=== PATIENT | male | born 1960 | race Caucasian/White ===

== ENCOUNTER 2018-10-23 09:30 | Emergency (ER) | payer OTHER ==
--- NOTE | 2018-10-23 09:42 | ED ---
Dizziness - HPI Summary HPI Summary: This patient is a 57 year old male presenting to [facility] with a chief complaint of light-headedness since this morning. When he woke up this morning he helped his daughter move a piece of furniture by the pool and then he sat down to relax. Then he started experiencing light-headedness. The patient reports nausea. Pt denies any fever, chills, erythema of eyes, sore throat, CP, SOB, cough, abdominal pain, vomiting , dysuria, hematuria, myalgia, edema, or rash. Zolpidem TAB* [Ambien*] 5 mg PO BEDTIME PRN 12/06/15 [History Confirmed 02/21/17 ] Aspirin EC TAB* [Ecotrin EC Low Dose 81 MG*] 81 mg PO DAILY tab.ec 12/09/15 [ Rx Confirmed 02/21/17] Isosorbide Mononitrate ER TAB* [Imdur ER TAB*] 30 mg PO DAILY #30 tab.er [Rx Confirmed 02/21/17] Metoprolol Tartrate TAB* [Lopressor TAB*] 25 mg PO BID #60 tab 12/09/15 [Rx Confirmed 02/21/17] Ticagrelor* [Brilinta 90 MG*] 90 mg PO BID #60 tab 12/09/15 [Rx Confirmed ] Multiple Vitamins W/ Minerals [Multivitamin Men] 1 tab PO DAILY 02/20/17 [ History Confirmed 02/21/17] Rosuvastatin Calcium 5 mg PO DAILY 02/20/17 [History Confirmed 02/21/17] - History Of Current Complaint Chief Complaint: EDHypertension Stated Complaint: LIGHT HEADED PER PT Time Seen by Provider: 10/23/18 09:36 Hx Obtained From: Patient Character: Lightheaded - Allergies/Home Medications Allergies/Adverse Reactions: Allergies Allergy/AdvReac Type Severity Reaction Status Date / Time No Known Allergies Allergy Verified 10/23/18 09:36 PMH/Surg Hx/FS Hx/Imm Hx Endocrine/Hematology History: Denies: Hx Diabetes Cardiovascular History: Reports: Hx Angina, Hx Coronary Artery Disease, Hx Hypercholesterolemia, Hx Hypertension, Hx Myocardial Infarction Denies: Hx Pacemaker/ICD, Hx Valvular Heart Disease Respiratory History: Denies: Hx Asthma, Hx Chronic Obstructive Pulmonary Disease (COPD) Sensory History: Denies: Hx Hearing Aid Psychiatric History: Denies: Hx Panic Disorder - Surgical History Surgery Procedure, Year, and Place: HERN[facility] Infectious Disease History: No Infectious Disease History: Denies: Traveled Outside the [place] in Last 30 Days - Family History Known Family History: Positive: Hypertension - Social History Alcohol Use: Weekly Alcohol Amount: 5 beers twice/wk Substance Use Type: Reports: None Smoking Status (MU): Never Smoked Tobacco Review of Systems Negative: Fever, Chills Negative: Erythema Negative: Sore Throat Negative: Chest Pain Negative: Shortness Of Breath, Cough Positive: Nausea. Negative: Abdominal Pain, Vomiting Negative: dysuria, hematuria Negative: Myalgia, Edema Negative: Rash Neurological: Other - Light-headed All Other Systems Reviewed And Are Negative: Yes Physical Exam - Summary Physical Exam Summary: Constitutional: Well-developed, Well-nourished, Alert. (-) Distressed Skin: Warm, Dry HENT: Normocephalic; Atraumatic Eyes: Conjunctiva normal Neck: Musculoskeletal ROM normal neck. (-) JVD, (-) Stridor, (-) Tracheal deviation Cardio: Rhythm regular, rate normal, Heart sounds normal; Intact distal pulses; The pedal pulses are 2+ and symmetric. Radial pulses are 2+ and symmetric. (-) Murmur Pulmonary/Chest wall: Effort normal. (-) Respiratory distress, (-) Wheezes, (-) Rales Abd: Soft, (-) tenderness, (-) Distension, (-) Guarding, (-) Rebound Musculoskeletal: (-) Edema Lymph: (-) Cervical adenopathy Neuro: Alert, Oriented x3 Psych: Mood and affect Normal GCS: 15 Triage Information Reviewed: Yes Vital Signs On Initial Exam: Initial Vitals Temp Pulse Resp BP Pulse Ox 98.0 F 58 16 183/105 98 10/23/18 09:33 10/23/18 09:33 10/23/18 09:33 10/23/18 09:33 10/23/18 09:33 Vital Signs Reviewed: Yes Diagnostics - Vital Signs Vital Signs Temp Pulse Resp BP Pulse Ox 10/23/18 09:33 98.0 F 58 16 183/105 98 - Laboratory Result Diagrams: 10/23/18 09:46 10/23/18 09:46 Lab Statement: Any lab studies that have been ordered have been reviewed, and results considered in the medical decision making process. - CT Brain CT Interpretation Completed By: Radiologist Summary of CT Findings: There is no evidence of intracranial mass or hemorrhage. ED Provider has reviewed this report. - EKG 0954 Cardiac Rate: Bradycardia EKG Rhythm: Sinus Bradycardia - [address] Segment: Normal Ectopy: None Summary of EKG Findings: No STEMI Re-Evaluation - Re-Evaluation First Eval Re-Evaluation Time: 10:17 Change: Worse Comment: Patient is now actively vomiting. During orthostatic vital signs, the patients BP increased to 160/95. Due to this, a Brain CT was ordered. Second Eval Re-Evaluation Time: 11:09 Change: Improved Comment: All symptoms resolved. Patient feels better. Dizzy Course/Dx - Course Course Of Treatment: This patient is a 57 year old male presenting to [facility] with a chief complaint of light-headedness since this morning. At reevaluation, patient is now actively vomiting. During orthostatic vital signs, the patients BP increased to 160/95. Due to this, a Brain CT was ordered. The Brain CT was unremarkable. Upon second reevaluation all symptoms resolved and the patient feels better. Walked patient around and patient had normal gait. Hypertension has resolved. Romberg test is unremarkable. Finger to nose test unremarkable. Spoke with patient's PCP Dr. Ivan. Patient will undergo ambulatory monitoring with Dr. Ivan. Dr. Ivan also recommends he take 2.5 mg Amlodapine at night. The patient will be discharged with a plan to follow up with Dr. Ivan in 2-3 days. This plan was discussed with the patient and he was agreeable with this plan. - Diagnoses Provider Diagnoses: Hypertensive urgency, Dizziness - Provider Notifications Discussed Care Of Patient With: Celestine Ivan - Patient PCP Time Discussed With Above Provider: 14:00 Instructed by Provider To: Have Pt Call For Appt. Discharge - Sign-Out/Discharge Documenting (check all that apply): Patient Departure - Discharge Patient Received Moderate/Deep Sedation with Procedure: No - Discharge Plan Condition: Stable Disposition: HOME Prescriptions: amLODIPine TAB* [Norvasc 5 mg TAB*] 2.5 mg PO QPM #14 tab Patient Education Materials: Hypertensive Crisis (ED), Dizziness (ED) Referrals: Celestine Ivan MD [Primary Care Provider] - 2 Days Additional Instructions: Follow up with Dr. Ivan in 2-3 days. Return to ED with any new or worsening symptoms. - Attestation Statements Document Initiated by Scribe: Yes Documenting Scribe: Giovany Kurtz Provider For Whom Scribe is Documenting (Include Credential): Charlie Doe MD Scribe Attestation: Giovany Mendoza, scribed for Charlie Doe MD on 10/23/18 at 1408. Status of Scribe Document: Ready
[2018-10-23 09:57] LABS: ABS Basophils 0.1 10^3/ul (0-0.2); ABS Eosinophils 0.1 10^3/ul (0-0.6); ABS Lymphocytes 3.3 10^3/ul (1.0-4.8); ABS Monocytes 0.6 10^3/ul (0-0.8); ABS Neutrophils 2.5 10^3/ul (1.5-7.7); Eosinophil % 2.1 %; Hematocrit 50 % (42-52); Hemoglobin 16.7 g/dL (14.0-18.0); Lymphocyte % 50.7 %; Mean Corpuscular HGB Conc 33 g/dL (31-36); Mean Corpuscular Hemoglobin 28 pg (27-31); Mean Corpuscular Volume 85 fL (80-94); Mean Platelet Volume 7.6 fL (7.4-10.4); Nucleated Red Blood Cells % 0.3; Platelet Count 223 10^3/uL (150-450); Red Blood Count 5.88 10^6 /uL (4.18-5.48); Red Cell Distribution Width 14 % (10.5-15); White Blood Count 6.6 10^3/uL (3.5-10.8)
[2018-10-23] MEDS: hydrALAZINE IV* 20 MG/ML VIAL IV SLOW PU ONE ×2 (10:06→10:16)
[2018-10-23] MEDS ORDERED: Ondansetron INJ* 2 MG/ML VIAL IV ONE (10:16)
[2018-10-23 10:20] LABS: Albumin/Globulin Ratio 1.4 (1-3); BUN/Creatinine Ratio 18.6 (8-20); Calcium 9.6 mg/dL (8.6-10.3); EGFR African American 69.2 (>60); EGFR Non-African American 57.2 (>60); Globulin 2.9 g/dL (2-4); Potassium 4.1 mmol/L (3.5-5.0); Total Bilirubin 0.9 mg/dL (0.2-1.0); Total Protein 6.9 g/dL (6.4-8.9)
[2018-10-23 14:10] VITALS: BP 133/96
== END 2018-10-23 14:09 | disposition home or self-care (01) ==
LOC: ED 09:30
DX: I16.0 Hypertensive urgency (principal); R42 Dizziness and giddiness; I25.10 Atherosclerotic heart disease of native coronary artery without angina pectoris; I25.2 Old myocardial infarction; E78.00 Pure hypercholesterolemia, unspecified; Z79.82 Long term (current) use of aspirin; Z79.899 Other long term (current) drug therapy
CPT/HCPCS: 36415; 70450; 80053; 83605; 84484; 85025; 93005; 96374; 99283; J0360; J2405

== ENCOUNTER 2021-04-01 03:00 | Inpatient (IN) ==
[2021-04-01 04:18] LABS: ABS Eosinophils 0.1 10^3/ul (0-0.6); ABS Lymphocytes 1.4 10^3/ul (1.0-4.8); ABS Monocytes 0.9 10^3/ul (0-0.8); ABS Neutrophils 5.7 10^3/ul (1.5-7.7); Eosinophil % 1.5 %; Hematocrit 48 % (42-52); Hemoglobin 15.9 g/dL (14.0-18.0); Lymphocyte % 17.5 %; Mean Corpuscular HGB Conc 33 g/dL (31-36); Mean Corpuscular Hemoglobin 29 pg (27-31); Mean Corpuscular Volume 87 fL (80-94); Mean Platelet Volume 7.7 fL (7.4-10.4); Platelet Count 194 10^3/uL (150-450); Red Blood Count 5.51 10^6 /uL (4.18-5.48); Red Cell Distribution Width 15 % (10-15); White Blood Count 8.1 10^3/uL (3.5-10.8)
[2021-04-01 04:24] LABS: INR 1.13 (0.86-1.15)
[2021-04-01 04:34] LABS: Albumin 3.7 g/dL (3.2-5.2); Calcium 9.5 mg/dL (8.6-10.3); Globulin 3.4 g/dL (2-4); Potassium 4.6 mmol/L (3.5-5.0); Total Protein 7.1 g/dL (6.4-8.9)
[2021-04-01 04:35] LABS: Albumin/Globulin Ratio 1.1 (1-3); Total Bilirubin 1.1 mg/dL (0.2-1.0)
[2021-04-01 04:36] LABS: Troponin I 0.02 ng/mL (<0.03)
[2021-04-01] MEDS ORDERED: Iohexol 350 (CONTRAST) 500 ML MDV IV ONE (09:27)
[2021-04-01] MEDS ORDERED: Enoxaparin 100 MG/ML SYR SUBCUT ONE (10:02)
[2021-04-01] MEDS ORDERED: Morphine 4 MG/ML VIAL (1 ml) IV ONE (10:10)
[2021-04-01] MEDS ORDERED: Ondansetron 4 mg VIAL 2 MG/ML 2 ml VIAL IV PRN (11:00)
[2021-04-01 11:47] LABS: Rapid COVID-19 Molecular Undetected (Undetected)
[2021-04-01 12:03] LABS: PSA Screening Total 1.186 ng/mL (0-4.000)
[2021-04-01] MEDS: Enoxaparin 100 MG/ML SYR SUBCUT SCH (22:23)
[2021-04-02 07:16] LABS: ABS Eosinophils 0.1 10^3/ul (0-0.6); ABS Lymphocytes 1.3 10^3/ul (1.0-4.8); ABS Monocytes 0.8 10^3/ul (0-0.8); ABS Neutrophils 6.6 10^3/ul (1.5-7.7); Eosinophil % 1.1 %; Hematocrit 47 % (42-52); Hemoglobin 15.9 g/dL (14.0-18.0); Lymphocyte % 14.5 %; Mean Corpuscular HGB Conc 34 g/dL (31-36); Mean Corpuscular Hemoglobin 29 pg (27-31); Mean Corpuscular Volume 87 fL (80-94); Mean Platelet Volume 7.1 fL (7.4-10.4); Nucleated Red Blood Cells % 0.1; Platelet Count 201 10^3/uL (150-450); Red Blood Count 5.42 10^6 /uL (4.18-5.48); Red Cell Distribution Width 14 % (10-15); White Blood Count 8.8 10^3/uL (3.5-10.8)
[2021-04-02 07:30] LABS: Calcium 9.4 mg/dL (8.6-10.3); Potassium 4.6 mmol/L (3.5-5.0)
[2021-04-02] MEDS: Enoxaparin 100 MG/ML SYR SUBCUT SCH ×2 (12:00→22:34)
[2021-04-02 16:12] LABS: Urine Appearance Clear; Urine Bilirubin Negative (Negative); Urine Blood 3+ (Negative); Urine Color Yellow; Urine Glucose Negative (Negative); Urine Ketones Trace (Negative); Urine Nitrite Negative (Negative); Urine Protein 2+(100 mg/dL) (Negative); Urine Urobilinogen Negative (Negative)
[2021-04-02 16:19] LABS: Urine Bacteria Absent (Absent); Urine Red Blood Cell 3+(>10/hpf) (Absent); Urine White Blood Cell Trace(0-5/hpf) (Absent)
[2021-04-03 08:38] LABS: ABS Eosinophils 0.2 10^3/ul (0-0.6); ABS Monocytes 0.7 10^3/ul (0-0.8); ABS Neutrophils 4.1 10^3/ul (1.5-7.7); Eosinophil % 2.7 %; Hematocrit 48 % (42-52); Hemoglobin 16.3 g/dL (14.0-18.0); Lymphocyte % 17.2 %; Mean Corpuscular HGB Conc 34 g/dL (31-36); Mean Corpuscular Hemoglobin 29 pg (27-31); Mean Corpuscular Volume 86 fL (80-94); Mean Platelet Volume 7.1 fL (7.4-10.4); Nucleated Red Blood Cells % 0.1; Platelet Count 220 10^3/uL (150-450); Red Blood Count 5.58 10^6 /uL (4.18-5.48); Red Cell Distribution Width 14 % (10-15)
[2021-04-03 08:55] LABS: Calcium 9.6 mg/dL (8.6-10.3); Potassium 4.5 mmol/L (3.5-5.0)
[2021-04-03] MEDS: Enoxaparin 100 MG/ML SYR SUBCUT SCH (11:06)
[2021-04-03 15:29] LABS: Protein C Activity 113 % (70 - 150)
[2021-04-03 16:08] VITALS: BP 167/104
[2021-04-05 19:56] LABS: Phospholipid Ab IgG < 9.4 GPL; Phospholipid Ab IgM, S < 9.4 MPL
[2021-04-07 10:07] LABS: Factor V Leiden Mutation Negative (Negative)
== END 2021-04-03 18:30 | disposition home or self-care (01) | DRG 134 ==
LOC: ED 03:00 → SUATTDRO 11:00 → EDHOLD 11:00 → MED 04-02 03:19
PROVIDERS: ADMIT Student in an Organized Health Care Education/Training Program; ATTEND Hospitalist

== ENCOUNTER 2022-04-25 06:07 | Inpatient (IN) ==
[2022-04-25 06:39] LABS: ABS Eosinophils 0.2 10^3/ul (0-0.6); ABS Lymphocytes 1.6 10^3/ul (1.0-4.8); ABS Monocytes 0.6 10^3/ul (0-0.8); ABS Neutrophils 2.6 10^3/ul (1.5-7.7); Eosinophil % 3.2 %; Hematocrit 51 % (42-52); Lymphocyte % 32.5 %; Mean Corpuscular HGB Conc 33 g/dL (31-36); Mean Corpuscular Hemoglobin 29 pg (27-31); Mean Corpuscular Volume 86 fL (80-94); Mean Platelet Volume 7.4 fL (7.4-10.4); Platelet Count 201 10^3/uL (150-450); Red Blood Count 5.95 10^6 /uL (4.18-5.48); Red Cell Distribution Width 14 % (10-15)
[2022-04-25 06:41] LABS: INR 0.93 (0.89-1.11)
[2022-04-25 07:16] LABS: Albumin/Globulin Ratio 1.5 (1-3); Calcium 9.5 mg/dL (8.6-10.3); Globulin 2.6 g/dL (2-4); Potassium 4.4 mmol/L (3.5-5.0); Total Bilirubin 0.7 mg/dL (0.2-1.0); Total Protein 6.6 g/dL (6.4-8.9); eGFR CKD-EPI 58.3 (>60)
[2022-04-25 08:13] LABS: High Sensitivity Troponin 1 Hr 10 pg/mL (<20)
[2022-04-25] MEDS ORDERED: NS 0.9% 1000 ml BAG 1,000 ML IV SCH (13:30)
[2022-04-25] MEDS ORDERED: Heparin 1,000 UNIT/ML 10 ml (10,000 UNITS) CATHLAB/DIALYSIS ONE ×2 (13:52→14:52)
[2022-04-25] MEDS ORDERED: Midazolam 5 mg/5 ml VIAL 1 mg/ml 5 ml VIAL (5 mg) ONE (13:52)
[2022-04-25] MEDS ORDERED: fentaNYL 100 mcg/2 ml 50 MCG/ML VIAL ONE ×2 (13:52→15:20)
[2022-04-25] MEDS ORDERED: Iohexol 350 (CONTRAST) 100 ML PAK IV ONE ×2 (13:53→15:00)
[2022-04-25] MEDS ORDERED: Lidocaine 1% MPF 5 ML VIAL ONE (13:53)
[2022-04-25] MEDS ORDERED: nitroGLYCERIN DRIP 25,000 MCG/250 ML BTL ONE (13:53)
[2022-04-25] MEDS ORDERED: niCARdipine 0.1MG/ML IVPREMIX 20 MG/200 ML BAG IV ONE (13:53)
[2022-04-25] MEDS ORDERED: Heparin 2 UNITS/ML 1000 mls 2,000 ML IV ONE (13:53)
[2022-04-25] MEDS ORDERED: Prasugrel 10 mg TAB (NF) ONE (14:45)
[2022-04-25] MEDS ORDERED: Ondansetron 4 mg VIAL 2 MG/ML 2 ml VIAL IV PRN (15:27)
[2022-04-26 04:43] LABS: ABS Basophils 0.1 10^3/ul (0-0.2); ABS Eosinophils 0.2 10^3/ul (0-0.6); ABS Lymphocytes 1.5 10^3/ul (1.0-4.8); ABS Monocytes 0.7 10^3/ul (0-0.8); ABS Neutrophils 4.1 10^3/ul (1.5-7.7); Eosinophil % 2.6 %; Hematocrit 51 % (42-52); Hemoglobin 16.9 g/dL (14.0-18.0); Lymphocyte % 23.8 %; Mean Corpuscular HGB Conc 33 g/dL (31-36); Mean Corpuscular Hemoglobin 29 pg (27-31); Mean Corpuscular Volume 86 fL (80-94); Mean Platelet Volume 7.2 fL (7.4-10.4); Nucleated Red Blood Cells % 0.1; Platelet Count 188 10^3/uL (150-450); Red Blood Count 5.95 10^6 /uL (4.18-5.48); Red Cell Distribution Width 14 % (10-15); White Blood Count 6.5 10^3/uL (3.5-10.8)
[2022-04-26 05:32] LABS: Albumin 3.7 g/dL (3.2-5.2); Albumin/Globulin Ratio 1.5 (1-3); Calcium 8.7 mg/dL (8.6-10.3); Globulin 2.4 g/dL (2-4); HDL Cholesterol 38.5 mg/dL; Magnesium 1.9 mg/dL (1.9-2.7); Potassium 4.6 mmol/L (3.5-5.0); Total Bilirubin 0.8 mg/dL (0.2-1.0); Total Protein 6.1 g/dL (6.4-8.9); eGFR CKD-EPI 82.1 (>60)
[2022-04-26] MEDS ORDERED: Magnesium Sulfate 2 gm BAG 2 GM/50 ML BAG IVPB ONE (07:14)
[2022-04-26] MEDS ORDERED: CMCS: Prasugrel 5 MG TAB (NF) PO SCH (09:00)
[2022-04-26] MEDS ORDERED: Influenza vaccine *QUAD* *2022-23* 0.5 ML SYRINGE IM ONE (09:00)
[2022-04-26 11:28] VITALS: BP 157/106
== END 2022-04-26 12:25 | disposition home or self-care (01) | DRG 175 ==
LOC: ED 06:07 → EDHOLD 06:07 → AA 14:54 → ICU 15:55
PROVIDERS: ADMIT Internal Medicine; ATTEND Internal Medicine